=== PATIENT | female | born 1955 ===

== ENCOUNTER → 2025-09-10 09:45 | Outpatient (REF) | payer OTHER, SELFPAY | LOC: HWRCS 09:45 | PROVIDERS: ATTENDING PHYSICIAN Internal Medicine Cardiovascular Disease; FAMILY PHYSICIAN Family Medicine | DX: E78.5 Hyperlipidemia, unspecified (principal); E11.69 Type 2 diabetes mellitus with other specified complication; Z01.810 Encounter for preprocedural cardiovascular examination | CPT/HCPCS: 93306 ==